=== PATIENT | male | born 1975 | race Two or more races ===

== ENCOUNTER 2020-02-19 10:52 | Emergency (ER) | payer OTHER ==
[~2020-02-19] VITALS: Ht 172.7 cm; Wt 90.9 kg
[2020-02-19 10:53] VITALS: BP 129/83
== END 2020-02-19 12:47 | disposition home or self-care (01) ==
LOC: EMS 10:56
DX: R05 Cough (principal); M79.10 Myalgia, unspecified site; Z20.828 Contact with and (suspected) exposure to other viral communicable diseases
CPT/HCPCS: 99283; U0003

== ENCOUNTER 2020-02-28 15:11 | Emergency (ER) | payer OTHER ==
[~2020-02-28] VITALS: Ht 167.6 cm; Wt 84.1 kg
[2020-02-28 15:43] VITALS: BP 133/76
[2020-02-28] MEDS ORDERED: ACETAMINOPHEN 500 MG TABLET PO ONE (16:15)
[2020-02-28 17:01] LABS: COVID AG,FIA SOURCE NASOPHARYNGEAL
== END 2020-02-28 16:43 | disposition home or self-care (01) ==
LOC: EMS 15:12
DX: R51.9 Headache, unspecified (principal); Z20.828 Contact with and (suspected) exposure to other viral communicable diseases
CPT/HCPCS: 87426; 99283; C9803; U0003